=== PATIENT | female | born 1990 | race American Indian/Alaskan Native ===

== ENCOUNTER 2017-03-14 16:40 | Emergency (ER) | payer MEDICAID, SELFPAY ==
[2017-03-14 16:53] VITALS: BMI 38.4
[2017-03-14 16:57] VITALS: BP 109/71; PULSE 99; RESP 18; TEMP 99; O2SAT 98
--- NOTE | 2017-03-14 17:47 | ED PDOC ---
Arrival/HPI - General Chief Complaint: Lower Extremity Problem/Injury Time Seen by Provider: 03/14/17 16:57 Historian: Patient - History of Present Illness Narrative History of Present Illness (Text): 03/14/17 17:43 26yo female present with complaint of right ankle pain s/p trauma this morning. States she twisted her right ankle this morning, while coming down stairs. Reports pain with ambulation. Did not take any medication for the pain. Denies any other complaint. Past Medical History - Provider Review Nursing Documentation Reviewed: Yes - Infectious Disease Hx of Infectious Diseases: None - Tetanus Immunization Tetanus Immunization: Unknown - Endocrine/Metabolic Hx Systemic Lupus Erythematosus: Yes - Psychiatric Hx Depression: No Hx Emotional Abuse: No Hx Physical Abuse: No Hx Substance Use: No - Surgical History Hx Orthopedic Surgery: Yes (foot surgery) - Anesthesia Hx Anesthesia: Yes Hx Anesthesia Reactions: No Hx Malignant Hyperthermia: No - Suicidal Assessment Feels Threatened In Home Enviroment: No Family/Social History - Physician Review Nursing Documentation Reviewed: Yes Family/Social History: Unknown Family HX Smoking Status: Never Smoked Hx Alcohol Use: No Hx Substance Use: No Allergies/Home Meds Allergies/Adverse Reactions: Allergies No Known Allergies Allergy (Verified 04/25/13 09:25) Home Medications: Home Meds Medication Instructions Recorded Confirmed Mycophenolate Mofetil [Cellcept] 250 mg PO DAILY 04/16/13 04/16/13 Ferrous Sulfate [Iron] 1 tab PO DAILY 03/14/17 03/14/17 Hydroxychloroquine Sulfate 1 tab PO DAILY 03/14/17 03/14/17 [Plaquenil] Review of Systems - Physician Review All systems were reviewed & negative as marked: Yes - Review of Systems Constitutional: Normal Eyes: Normal ENT: Normal Respiratory: Normal Cardiovascular: Normal Gastrointestinal: Normal Genitourinary Female: Normal Musculoskeletal: Arthralgias (Right ankle pain) Skin: Normal Neurological: Normal Endocrine: Normal Hemo/Lymphatic: Normal Psychiatric: Normal Physical Exam Vital Signs Reviewed: Yes Vital Signs Temp Pulse Resp BP Pulse Ox 03/14/17 16:57 99.0 F 99 H 18 109/71 98 Temperature: Afebrile Blood Pressure: Normal Pulse: Regular Respiratory Rate: Normal Appearance: Positive for: Well-Appearing, Non-Toxic, Comfortable Pain Distress: None Mental Status: Positive for: Alert and Oriented X 3 - Systems Exam Head: Present: Atraumatic, Normocephalic Pupils: Present: PERRL Extroacular Muscles: Present: EOMI Conjunctiva: Present: Normal Mouth: Present: Moist Mucous Membranes Neck: Present: Normal Range of Motion Respiratory/Chest: Present: Clear to Auscultation, Good Air Exchange. No: Respiratory Distress, Accessory Muscle Use Cardiovascular: Present: Regular Rate and Rhythm, Normal S1, S2. No: Murmurs Abdomen: Present: Normal Bowel Sounds. No: Tenderness, Distention, Peritoneal Signs Back: Present: Normal Inspection Upper Extremity: Present: Normal Inspection. No: Cyanosis, Edema Lower Extremity: Present: NORMAL PULSES, Normal ROM, Tenderness (Anterior right ankle), Neurovascularly Intact. No: Edema, CALF TENDERNESS, Cyanosis, Swelling , Erythema, Deformity, Temperature Abnormalties Neurological: Present: GCS=15, CN II-XII Intact, Speech Normal Skin: Present: Warm, Dry, Normal Color. No: Rashes Psychiatric: Present: Alert, Oriented x 3, Normal Insight, Normal Concentration Medical Decision Making ED Course and Treatment: 03/14/17 18:25 Right ankle xray - No acute fracture/dislocation noted Gianni wrap applied. Pt declined crutches states she have crutches at home. Referred to ortho/PMd. TRT ED for any new or worsening symptoms - RAD Interpretation Radiology Orders: 03/14/17 16:57 ANKLE RIGHT 3 VIEWS ROUTINE [RAD] Stat - Medication Orders Current Medication Orders: Discontinued Medications Ibuprofen (Motrin Tab) 600 mg PO STAT STA Stop: 03/14/17 17:42 Last Admin: 03/14/17 17:56 Dose: Not Given Non-Admin Reason: Patient Refused Disposition/Present on Arrival - Present on Arrival Any Indicators Present on Arrival: No History of DVT/PE: No History of Uncontrolled Diabetes: No Urinary Catheter: No History of Decub. Ulcer: No History Surgical Site Infection Following: None - Disposition Have Diagnosis and Disposition been Completed?: Yes Diagnosis: Ankle sprain Disposition: HOME/ ROUTINE Disposition Time: 17:50 Patient Plan: Discharge Condition: STABLE Discharge Instructions (ExitCare): Ankle Sprain (ED) Additional Instructions: Follow up with your Doctor Rest, ice compress and elevate ankle Return to ED for any new or worsening symptoms Prescriptions: Ibuprofen [Motrin Tab] 600 mg PO Q6 #20 tab Referrals: Devon Amor MD [Primary Care Provider] - Follow up with primary
--- NOTE | 2017-03-15 10:51 | RAD ---
PROCEDURE: Right Ankle Radiographs. HISTORY: ankle pain s/p trauma COMPARISON: None FINDINGS: BONES: Normal. No fracture. JOINTS: Normal. No osteoarthritis. Ankle mortise maintained. Talar dome intact SOFT TISSUES: Normal. OTHER FINDINGS: None. IMPRESSION: Normal right ankle radiographs.
== END 2017-03-14 18:10 | disposition home or self-care (01) ==
LOC: ED 16:40
DX: S93.401A Sprain of unspecified ligament of right ankle, initial encounter (principal); X50.1XXA Overexertion from prolonged static or awkward postures, initial encounter